=== PATIENT | female | born 2000 | race Caucasian/White ===

== ENCOUNTER 2020-08-12 08:07 | Emergency (ER) | payer MEDICAID ==
[~2020-08-12] VITALS: Ht 162.6 cm; Wt 75.0 kg
[2020-08-12] MEDS ORDERED: metoclopramide 5 mg/ml inj IV ONE (08:40)
[2020-08-12] MEDS ORDERED: famotidine/PF 10 mg/ml inj IV ONE (08:40)
[2020-08-12] MEDS ORDERED: normal saline 1000ML IV soln IV ONE (08:40)
[2020-08-12 08:45] LABS: BASOPHILS % (AUTO) 0.6 % (0-1); EOSINOPHILS # (AUTO) 0.4 X10'3 (0-0.9); EOSINOPHILS % (AUTO) 4.8 % (0-6); HEMATOCRIT 40.9 % (35.0-45.0); HEMOGLOBIN 13.8 g/dl (12.0-16.0); LYMPHOCYTES # (AUTO) 1.6 X10'3 (1.1-4.8); MEAN CORPUSCULAR HGB CONC 33.7 g/dL (33.0-36.5); MEAN CORPUSCULAR VOLUME 80.1 FL (78-98); MEAN PLATELET VOLUME 8.7 FL (7.4-10.4); MONOCYTES # (AUTO) 0.5 X10'3 (0-0.9); MONOCYTES % (AUTO) 6.3 % (2-12); NEUTROPHILS # (AUTO) 6.1 X10'3 (1.8-7.7); NEUTROPHILS % (AUTO) 70.3 % (42-75); PLATELET COUNT 393 X10'3 (140-440); RED CELL DISTRIBUTION WIDTH 14.9 % (11.5-14.5); WHITE BLOOD COUNT 8.6 X10'3 (4.5-11.0)
[2020-08-12 09:05] LABS: ALANINE AMINOTRANSFERASE 22 U/L (12-78); ALBUMIN 4.4 G/DL (3.4-5.0); ALKALINE PHOSPHATASE 69 IU/L (20-180); AMYLASE 49 U/L (25-115); ANION GAP 9 (8-16); ASPARTATE AMINO TRANSFERASE 12 U/L (10-37); BILIRUBIN,TOTAL 0.7 MG/DL (0.1-1.0); BLOOD UREA NITROGEN 8 MG/DL (7-18); BUN/CREATININE RATIO 8.7 (6.6-38.0); CALCIUM 8.7 MG/DL (8.5-10.1); CHLORIDE 101 MMOL/L (99-107); CREATININE 0.92 MG/DL (0.40-0.90); GLUCOSE 104 MG/DL (70-104); LIPASE 106 U/L (73-393); POTASSIUM 3.8 MMOL/L (3.5-5.1); SODIUM 138 MMOL/L (135-145); TOTAL CARBON DIOXIDE 27.6 MMOL/L (24-32); TOTAL PROTEIN 8.8 G/DL (6.4-8.2); eGFR 78 ML/MIN
[2020-08-12 09:08] VITALS: BP 137/85
[2020-08-12 09:10] LABS: CLARITY,URINE CLEAR (Clear); COLOR,URINE YELLOW (Yellow); GLUCOSE, URINE NEGATIVE (Neg); KETONES,URINE NEGATIVE (Neg); LEUKOCYTE ESTERASE ,URINE TRACE (Neg); NITRITES, URINE NEGATIVE (Neg); OCCULT BLOOD,URINE NEGATIVE (Neg); PH,URINE 7.5 (4.8-8.0); PROTEIN,URINE NEGATIVE (Neg); UROBILINOGEN,URINE 0.2 E.U/dL (0.2-1.0)
[2020-08-12 09:11] LABS: URINE HCG NEGATIVE (NEG)
[2020-08-12 09:19] LABS: UA COLLECTION TYPE CLN CATCH MIDSTREAM
[2020-08-12 09:20] LABS: MUCUS STRANDS FEW /LPF (Neg); SQUAMOUS EPITHELIAL CELL,UR MANY /LPF (FEW)
[2020-08-12 09:21] LABS: BACTERIA,URINE FEW /HPF (Neg)
[2020-08-12 09:22] LABS: RBC,URINE 0-2 /HPF (0-2); WBC,URINE 0-4 /HPF (0-4); YEAST FEW /HPF (NEGATIVE)
== END 2020-08-12 09:57 | disposition home or self-care (01) ==
LOC: ER 08:08
DX: R10.13 Epigastric pain (principal); R11.2 Nausea with vomiting, unspecified
CPT/HCPCS: 36415; 71045; 80053; 81001; 81025; 82150; 83690; 85025; 85610; 86885; 86900; 86901; 96361; 96374; 96375; 99284; J2765; J3490; J7030

== ENCOUNTER 2022-07-15 11:13 | Emergency (ER) | payer MEDICAID ==
[~2022-07-15] VITALS: Ht 160 cm; Wt 75.0 kg
[2022-07-15 12:36] VITALS: BP 129/90
[2022-07-15] MEDS ORDERED: TETanus/Pertussis (Acell)/Diphther VAC/PF (Tdap-Adult) 0.5ml syringe IMVAC ONE (13:00)
[2022-07-15] MEDS ORDERED: amox tr/potassium clavulanate 875/125mg TAB PO ONE (13:00)
[2022-07-15] MEDS ORDERED: AMOX-580 PO (14:16)
== END 2022-07-15 14:32 | disposition home or self-care (01) ==
LOC: ER 11:13
DX: S61.051A Open bite of right thumb without damage to nail, initial encounter (principal); W55.01XA Bitten by cat, initial encounter; Y93.89 Activity, other specified; Y92.89 Other specified places as the place of occurrence of the external cause; Y99.8 Other external cause status
CPT/HCPCS: 73120; 90471; 90715; 99283